=== PATIENT | male | born 1995 | race Caucasian/White ===

== ENCOUNTER 2018-10-08 16:03 | Inpatient (IN) | payer OTHER ==
[2018-10-08 17:38] LABS: ABS Eosinophils 0.4 10^3/ul (0-0.6); ABS Lymphocytes 1.1 10^3/ul (1.0-4.8); ABS Monocytes 0.6 10^3/ul (0-0.8); ABS Neutrophils 5.5 10^3/ul (1.5-7.7); Hematocrit 46 % (42-52); Hemoglobin 15.7 g/dL (14.0-18.0); Lymphocyte % 14.3 %; Mean Corpuscular HGB Conc 34 g/dL (31-36); Mean Corpuscular Hemoglobin 30 pg (27-31); Mean Corpuscular Volume 89 fL (80-94); Mean Platelet Volume 8.7 fL (7.4-10.4); Nucleated Red Blood Cells % 0.1; Platelet Count 178 10^3/uL (150-450); Red Blood Count 5.17 10^6 /uL (4.18-5.48); Red Cell Distribution Width 13 % (10.5-15); White Blood Count 7.6 10^3/uL (3.5-10.8)
[2018-10-08 17:50] LABS: ALT 492 U/L (7-52); Albumin 4.5 g/dL (3.2-5.2); Albumin/Globulin Ratio 1.8 (1-3); Alkaline Phosphatase 93 U/L (34-104); BUN/Creatinine Ratio 11.8 (8-20); Blood Urea Nitrogen 10 mg/dL (6-24); CO2 Carbon Dioxide 37 mmol/L (22-32); Calcium 9.7 mg/dL (8.6-10.3); Chloride 103 mmol/L (101-111); EGFR African American 135.2 (>60); EGFR Non-African American 111.7 (>60); Globulin 2.5 g/dL (2-4); Glucose 65 mg/dL (70-100); Potassium 4.3 mmol/L (3.5-5.0); Sodium 139 mmol/L (135-145)
[2018-10-08] MEDS ORDERED: NS 0.9% 1000 ML** 1,000 ML IV ONE ×3 (18:14→21:42)
[2018-10-08 18:16] LABS: AST 1899 U/L (13-39)
--- NOTE | 2018-10-08 18:42 | ED ---
Upper Extremity Pain - HPI Summary HPI Summary: 23 yo male presents with [facility] [place] ED with muscle aches. He tells me that he works out often and is a runner. He worked out especially hard 4 days ago on 10/04. Since that time he has been having continued muscle aches and fatigue, which is unusual for him. He went to [facility] and they checked a urine sample which apparently was dark in color and contained protein and blood. He was advised to come to the ED for further eval over concern for rhabdomyolysis. Currently pt states he feels well except for some diffuse muscle aches and slight weakness. He is urinating without issue. Denies dizziness, SOB, chest pain, abdominal pain, n/v, back pain, or recent illness. - History of Current Complaint Chief Complaint: EDGeneral Stated Complaint: MUSCLE PAIN/BLOOD IN URINE PER PT Time Seen by Provider: 10/08/18 18:14 Hx Obtained From: Patient Onset/Duration: Started Days Ago Timing: Constant Severity Initially: Mild Severity Currently: Mild - Allergies/Home Medications Allergies/Adverse Reactions: Allergies Allergy/AdvReac Type Severity Reaction Status Date / Time No Known Allergies Allergy Verified 10/08/18 16:11 Home Medications: Home Medications NK [No Home Medications Reported] 10/08/18 [History Confirmed 10/08/18] PMH/Surg Hx/FS Hx/Imm Hx Previously Healthy: Yes Endocrine/Hematology History: Denies: Hx Blood Disorders, Hx Diabetes, Hx Anemia Cardiovascular History: Denies: Hx Atrial Fibrillation, Hx Hypotension, Hx Hypertension, Hx Myocardial Infarction, Hx Syncope Respiratory History: Denies: Hx Asthma GI History: Denies: Hx Gall Bladder Disease, Hx Jaundice History: Denies: Hx Acute Renal Failure, Hx Kidney Infection, Hx Kidney Stones Psychiatric History: Denies: Hx Anxiety - Immunization History Immunizations Up to Date: Yes Infectious Disease History: No Infectious Disease History: Denies: Traveled Outside the [place] in Last 30 Days - Family History Known Family History: Positive: None - Social History Lives: With Family Alcohol Use: Rare Substance Use Type: Reports: None Smoking Status (MU): Never Smoked Tobacco Review of Systems Constitutional: Negative Eyes: Negative Cardiovascular: Negative Respiratory: Negative Gastrointestinal: Negative Genitourinary: Negative Positive: Myalgia Skin: Negative Neurological: Negative Psychological: Normal All Other Systems Reviewed And Are Negative: Yes Physical Exam - Summary Physical Exam Summary: GENERAL: NAD. WDWN. No pain distress. SKIN: No rashes, sores, ulcers, masses, lesions. No ecchymosis HEENT: Head: AT/NC. Eyes: PERRLA. EOM intact. Ears: Hearing grossly normal. TMs intact, no bulging, erythema, or edema. No hemotympanum Nose: Nasal mucosa pink and moist. Throat: Posterior oropharynx without exudates, erythema, or tonsillar enlargement. Uvula midline. NECK: Supple. Nontender. FROM CHEST: CTAB. No r/r/w. No accessory muscle use. Breathing comfortably and in no distress. CV: RRR. Without m/r/g. Pulses intact. Brisk cap refill. ABDOMEN: Soft. NTTP. Bowel sounds present MSK: FROM in B/L UEs and LEs with symmetric strength. NEURO: A&Ox3. PSYCH: Age appropriate behavior. Triage Information Reviewed: Yes Vital Signs On Initial Exam: Initial Vitals Temp Pulse Resp BP Pulse Ox 98.7 F 74 16 123/84 99 10/08/18 16:07 10/08/18 16:07 10/08/18 16:07 10/08/18 16:07 10/08/18 16:07 Vital Signs Reviewed: Yes Diagnostics - Vital Signs Vital Signs Temp Pulse Resp BP Pulse Ox 10/08/18 16:07 98.7 F 74 16 123/84 99 - Laboratory Lab Results: Lab Results 10/08/18 10/08/18 Range/Units 17:23 17:23 WBC 7.6 (3.5-10.8) 10^3/uL RBC 5.17 (4.18-5.48) 10^6 /uL Hgb 15.7 (14.0-18.0) g/dL Hct 46 (42-52) % MCV 89 (80-94) fL MCH 30 (27-31) pg MCHC 34 (31-36) g/dL RDW 13 (10.5-15) % Plt Count 178 (150-450) 10^3/uL MPV 8.7 (7.4-10.4) fL Neut % (Auto) 72.3 % Lymph % (Auto) 14.3 % [place] % (Auto) 8.1 % Eos % (Auto) 5.0 % Baso % (Auto) 0.3 % Absolute Neuts (auto) 5.5 (1.5-7.7) 10^3/ul Absolute Lymphs (auto) 1.1 (1.0-4.8) 10^3/ul Absolute Monos (auto) 0.6 (0-0.8) 10^3/ul Absolute Eos (auto) 0.4 (0-0.6) 10^3/ul Absolute Basos (auto) 0.0 (0-0.2) 10^3/ul Absolute Nucleated RBC 0.0 10^3/ul Nucleated RBC % 0.1 Sodium 139 (135-145) mmol/L Potassium 4.3 (3.5-5.0) mmol/L Chloride 103 (101-111) mmol/L Carbon Dioxide 37 H (22-32) mmol/L BUN 10 (6-24) mg/dL Creatinine 0.85 (0.67-1.17) mg/dL Est GFR ( Amer) 135.2 (>60) Est GFR (Non-Af Amer) 111.7 (>60) BUN/Creatinine Ratio 11.8 (8-20) Glucose 65 L (70-100) mg/dL Calcium 9.7 (8.6-10.3) mg/dL Total Bilirubin 0.40 (0.2-1.0) mg/dL AST 1899 H (13-39) U/L ALT 492 H (7-52) U/L Alkaline Phosphatase 93 (34-104) U/L Total Creatine Kinase Pending Total Protein 7.0 (6.4-8.9) g/dL Albumin 4.5 (3.2-5.2) g/dL Globulin 2.5 (2-4) g/dL Albumin/Globulin Ratio 1.8 (1-3) Result Diagrams: 10/08/18 17:23 10/08/18 17:23 Lab Statement: Any lab studies that have been ordered have been reviewed, and results considered in the medical decision making process. Re-Evaluation - Re-Evaluation First Eval Re-Evaluation Time: 20:05 Change: Unchanged Comment: Pt still feeling well. Discussed possible admission with pt and he is agreeable with this. Hospitalist to eval Course/Dx - Course [place] [address]. Myoglobin 3691. UA with 3+ blood, 1+ protein, and trace leuks. Pt with rhabdomyolysis. In the ED pt was initially given 2L/hr bolus followed by 1L/hr NS x3. He has elevated liver enzymes which is not unexpected given his rhabdo. His renal function was WNL and he has no sign of end organ damage. Given his need for continued fluids and recheck labwork, I have consulted the hospitalist team for admission. Dr. Nelson agrees to admit the patient. - Diagnoses Provider Diagnoses: Rhabdomyolysis - Physician Notifications Discussed Care of Patient With: Alyson Nelson Instructed by Provider To: Admit As Inpatient - Critical Care Time Critical Care Time: 30-74 min Discharge - Sign-Out/Discharge Documenting (check all that apply): Patient Departure Patient Received Moderate/Deep Sedation with Procedure: No - Discharge Plan Condition: Stable Disposition: ADMITTED TO [facility] - Billing Disposition and Condition Condition: STABLE Disposition: Admitted to [facility]
[2018-10-08 19:04] LABS: Urine Appearance Turbid; Urine Bacteria Absent (Absent); Urine Bilirubin Negative (Negative); Urine Blood 3+ (Negative); Urine Color Yellow; Urine Glucose Negative (Negative); Urine Ketones Negative (Negative); Urine Nitrite Negative (Negative); Urine Protein 1+(30 mg/dL) (Negative); Urine Red Blood Cell Trace(0-2/hpf) (Absent); Urine Specific Gravity 1.015 (1.010-1.030); Urine Urobilinogen Negative (Negative); Urine White Blood Cell Trace(0-5/hpf) (Absent)
[2018-10-08] MEDS ORDERED: NS 0.9% 1000 ML** 2,000 ML IV ONE (19:10)
[2018-10-08 19:35] LABS: Myoglobin 3691.9 ng/mL (17.4-105.7)
[2018-10-08] MEDS ORDERED: Acetaminophen TAB* 325 MG PO PRN (22:45)
--- NOTE | 2018-10-09 00:25 | HP ---
Amended report to enter cosigning physician. CC: [facility]; Dr. Alyson Nelson* HISTORY AND PHYSICAL: DATE OF ADMISSION: 10/08/18. ATTENDING PHYSICIAN: Dr. Alyson Nelson* (dictated by Dagmar Agrawal NP PRIMARY CARE PROVIDER: [facility]. HISTORY OF PRESENT ILLNESS: Mr. Naqvi is a 23-year-old male with no significant past medical history who presented to the emergency room complaining of muscle soreness and dark urine x4 days. The patient reports that on Thursday he did an extreme [employer] workout called the [place] challenge, which consisted of a mile run, 100 pull-ups, 200 push-ups, 300 squats and then a mile run again. Patient reports that he completed the whole challenge. He reported that he had muscle aches, suspected this was related to the workout as it was more extreme than his normal physical workout he does 3 to 4 times a week. The patient reports that he started noticing dark urine. He reported that his muscle soreness was not improving and he was concerned about the dark urine, so he presented to the emergency room for further evaluation. While in the emergency room, the patient had routine lab work drawn. He was found to have a CK of 16,000 and an elevated myoglobin of 3691. He was also found to have blood in his urine. Due to these findings, we were asked to see and evaluate him for admission. PAST MEDICAL HISTORY: None. PAST SURGICAL HISTORY: [place] teeth removed. HOME MEDICATIONS: None. ALLERGIES: No known drug allergies. FAMILY HISTORY: No reported history of coronary artery disease or diabetes. Maternal grandfather with skin cancer. Maternal grandmother with colon cancer. SOCIAL HISTORY: The patient denies any tobacco. Does report occasional alcohol use. No illicit drug use. He is a student at [employer]. He is single. Surrogate decision maker in the event he is unable to make his own decisions is his mother, Elizabeth, her phone number is [phone]. REVIEW OF SYSTEMS: Patient denies any fever, chills, unintended weight loss. Denies any chest pain or edema. Denies any cough, hemoptysis, or shortness of breath. No nausea, vomiting, diarrhea, or abdominal pain. Denies any gross hematuria or dysuria. He does report dark urine, but no pain with urination. Denies any focal weakness or sensory loss. Denies any dysphagia. He does report muscle aches. Denies any rashes, lesions, open sores, psychosis or anxiety. PHYSICAL EXAMINATION GENERAL: At this time, is alert and oriented, resting on the stretcher in the emergency room. He is in no acute distress. VITAL SIGNS: Blood pressure 137/85, temperature was 98.9, heart rate 85, respirations 20, O2 saturation was 97%, room air. HEENT: Head is atraumatic, normocephalic. Eyes: EOMs are intact. Sclerae anicteric. Not pale. Oral mucosa appeared to be moist. NECK: Supple. LUNGS: Clear to auscultation bilaterally. No wheezes, rales, or rhonchi. CARDIAC: S1, S2. Regular rate and rhythm. No murmurs, rubs, or gallops. ABDOMEN: Soft, nontender. Bowel sounds are present x4. EXTREMITIES: He is able to move all 4 extremities with 5/5 strength. Pedal pulses are +2 bilaterally. Radial pulses are +2 bilaterally. There is no clubbing or cyanosis. Right forearm and upper arm with mild swelling, muscle is soft to palpation. NEUROLOGIC: He is awake, alert, oriented x3. Speech is clear. Thought process intact. There are no gross focal deficits. SKIN: Intact. LABORATORY DATA/DIAGNOSTIC STUDIES: WBCs are 7.6, RBCs 5.17, hemoglobin 15.7, hematocrit of 46, platelet count of 178,000. Sodium 139, potassium 4.3, chloride 103, carbon dioxide was 37, BUN was 10, creatinine 0.85, glucose was 65 , calcium 9.7. ASTs were 1899, ALTs were 492, alkaline phosphatase was 93, total CK was 16,539, myoglobin was 3691. Urine was within normal limits with the exception of urine protein was +1, urine blood was 3+, urine leukocyte esterase was trace and yeast was present. ASSESSMENT AND PLAN: 1. Mr. Naqvi is a 23-year-old male with no significant past medical history who completed an extreme [employer] workout on Thursday and developed muscle soreness and dark colored urine and presented for further evaluation, found to have rhabdomyolysis. He will be admitted inpatient for rhabdomyolysis. The patient did receive 5 L of normal saline in the emergency room. I will start him on Lactated Ringer's at 200 cc per hour, repeat a BMP and liver functions in the a.m. with a repeat CK. Patient will need to continue on IV fluids until his CK is below 5000. 2. Elevated liver functions. I expect his elevation in liver function is related to his rhabdomyolysis. We will continue to monitor his liver functions. If they remain elevated, would consider ultrasound of the liver. 3. FEN. He will have regular diet. 4. Code status is full code. 5. DVT prophylaxis. I will place him on heparin subcu q.12 hours. 6. Disposition. Patient will be placed inpatient on the medical floor. TIME SPENT: Time spent on this admission was approximately 50 minutes, greater than half that time was spent at the bedside, reviewing events leading thus far to his hospitalization, performing physical exam and reviewing my plan of care. I have discussed this with my attending, Dr. Alyson Nelson, she is in agreement with my plan. DAGMAR AGRAWAL, BRUCE [id number]/CPS #: [id number] FIDENCIO
[2018-10-09] MEDS: Lactated Ringers 1000 ML Bag* 1,000 ML IV SCH ×3 (00:36→10:39)
[2018-10-09] MEDS: Heparin VIAL(*) 5000 UNITS/ML VIAL (FIVE THOUSAND) SUBCUT SCH ×3 (01:01→21:16)
[2018-10-09 06:53] LABS: Albumin 3.9 g/dL (3.2-5.2); Albumin/Globulin Ratio 1.9 (1-3); BUN/Creatinine Ratio 13.2 (8-20); Calcium 9.1 mg/dL (8.6-10.3); EGFR African American 153.8 (>60); EGFR Non-African American 127.1 (>60); Globulin 2.1 g/dL (2-4); Indirect Bilirubin 0.3 mg/dL (0.3-1.0); Potassium 4.2 mmol/L (3.5-5.0); Total Bilirubin 0.4 mg/dL (0.2-1.0)
[2018-10-09 06:54] LABS: CKMB ng/mL 12.2 ng/mL (0.6-6.3)
[2018-10-09] MEDS ORDERED: NS 0.9% 1000 ML** 1,000 ML IV ONE ×2 (15:37→15:38)
[2018-10-09] MEDS: NS 0.9% 1000 ML** 1,000 ML IV SCH ×2 (17:22→21:24)
--- NOTE | 2018-10-09 18:11 | PN ---
Subjective Date of Service: 10/09/18 Interval History: Patient seen and examined. States he has no more muscle pain and urine is clearing. Denies chest pain, no SOB, no n/v or weakness. No further complaints. Objective Active Medications: Acetaminophen (Tylenol Tab*) 650 mg PO Q4H PRN PRN Reason: FEVER/PAIN Heparin Sodium (Porcine) (Heparin Vial(*)) 5,000 units SUBCUT Q12HR [facility] Last Admin: 10/09/18 08:13 Dose: Not Given Lactated Ringer's (Lactated Ringers 1000 Ml Bag*) 1,000 mls @ 200 mls/hr IV PER RATE [facility] Last Admin: 10/09/18 10:39 Dose: 200 mls/hr Sodium Chloride (Ns 0.9% 1000 Ml) 1,000 mls @ 250 mls/hr IV PER RATE [facility] Last Admin: 10/09/18 17:22 Dose: 250 mls/hr Vital Signs - 8 hr 10/09/18 10/09/18 11:04 15:36 Temperature 98.4 F 98.1 F Pulse Rate 57 72 Respiratory 16 12 Rate Blood Pressure 137/69 150/72 (mmHg) O2 Sat by Pulse 100 100 Oximetry Oxygen Devices in Use Now: None Appearance: alert, NAD Eyes: No Scleral Icterus, PERRLA Ears/Nose/Mouth/Throat: NL Teeth, Lips, Gums, Mucous Membranes Moist Neck: NL Appearance and Movements; NL JVP, Trachea Midline Respiratory: Symmetrical Chest Expansion and Respiratory Effort, Clear to Auscultation Cardiovascular: NL Sounds; No Murmurs; No JVD, RRR, No Edema Abdominal: NL Sounds; No Tenderness; No Distention Extremities: No Edema, No Clubbing, Cyanosis Skin: No Rash or Ulcers Neurological: Alert and Oriented x 3, NL Sensation, NL Gait, NL Muscle Strength and Tone Nutrition: Taking PO's Result Diagrams: 10/08/18 17:23 10/09/18 06:05 Additional Lab and Data: Lab Results 10/08/18 10/08/18 Range/Units 17:23 17:23 WBC 7.6 (3.5-10.8) 10^3/uL RBC 5.17 (4.18-5.48) 10^6 /uL Hgb 15.7 (14.0-18.0) g/dL Hct 46 (42-52) % MCV 89 (80-94) fL MCH 30 (27-31) pg MCHC 34 (31-36) g/dL RDW 13 (10.5-15) % Plt Count 178 (150-450) 10^3/uL MPV 8.7 (7.4-10.4) fL Neut % (Auto) 72.3 % Lymph % (Auto) 14.3 % [place] % (Auto) 8.1 % Eos % (Auto) 5.0 % Baso % (Auto) 0.3 % Absolute Neuts (auto) 5.5 (1.5-7.7) 10^3/ul Absolute Lymphs (auto) 1.1 (1.0-4.8) 10^3/ul Absolute Monos (auto) 0.6 (0-0.8) 10^3/ul Absolute Eos (auto) 0.4 (0-0.6) 10^3/ul Absolute Basos (auto) 0.0 (0-0.2) 10^3/ul Absolute Nucleated RBC 0.0 10^3/ul Nucleated RBC % 0.1 Sodium 139 (135-145) mmol/L Potassium 4.3 (3.5-5.0) mmol/L Chloride 103 (101-111) mmol/L Carbon Dioxide 37 H (22-32) mmol/L BUN 10 (6-24) mg/dL Creatinine 0.85 (0.67-1.17) mg/dL Est GFR ( Amer) 135.2 (>60) Est GFR (Non-Af Amer) 111.7 (>60) BUN/Creatinine Ratio 11.8 (8-20) Glucose 65 L (70-100) mg/dL Calcium 9.7 (8.6-10.3) mg/dL Total Bilirubin 0.40 (0.2-1.0) mg/dL AST 1899 H (13-39) U/L ALT 492 H (7-52) U/L Alkaline Phosphatase 93 (34-104) U/L Total Creatine Kinase Pending Total Protein 7.0 (6.4-8.9) g/dL Albumin 4.5 (3.2-5.2) g/dL Globulin 2.5 (2-4) g/dL Albumin/Globulin Ratio 1.8 (1-3) Microbiology and Other Data: Microbiology 10/08/18 18:35 Urine Culture - Final Urine No Growth (<1,000 CFU/mL) Assess/Plan/Problems-Billing Assessment: This is a 23 year old male with no previous medical history that presented to the ER muscle pain and dark urine after engaging in strenuous crossfit challenge , found to have high CPK and hematuria. - Patient Problems (1) Rhabdomyolysis Code(s): M62.82 - RHABDOMYOLYSIS SNOMED Code(s): 039611790 Comment: - Severe, 2/2 extreme exercise activity - [place] [address] and increased to 867081 after 5 liters of IVNS - AST trending down from 1899 to 1370 - Will give additional 2L NS now and change to NS at 250ml/hr after, repeat CK and CMP - Risk for delayed renal dysfunction given extremely elevated CK - continue to monitor closely (2) Full code status Code(s): Z78.9 - OTHER SPECIFIED HEALTH STATUS SNOMED Code(s): 759308832 Status and Disposition: Inpatient
[2018-10-10] MEDS: NS 0.9% 1000 ML** 1,000 ML IV SCH ×2 (05:53→09:49)
[2018-10-10 06:40] LABS: ABS Eosinophils 0.5 10^3/ul (0-0.6); ABS Lymphocytes 1.4 10^3/ul (1.0-4.8); ABS Monocytes 0.4 10^3/ul (0-0.8); ABS Neutrophils 3.3 10^3/ul (1.5-7.7); Eosinophil % 8.7 %; Hematocrit 41 % (42-52); Hemoglobin 14.1 g/dL (14.0-18.0); Lymphocyte % 24.9 %; Mean Corpuscular HGB Conc 34 g/dL (31-36); Mean Corpuscular Hemoglobin 31 pg (27-31); Mean Corpuscular Volume 90 fL (80-94); Platelet Count 150 10^3/uL (150-450); Red Blood Count 4.59 10^6 /uL (4.18-5.48); Red Cell Distribution Width 13 % (10.5-15); White Blood Count 5.7 10^3/uL (3.5-10.8)
[2018-10-10 06:57] LABS: Albumin 3.8 g/dL (3.2-5.2); Albumin/Globulin Ratio 1.7 (1-3); BUN/Creatinine Ratio 11.5 (8-20); Calcium 9.1 mg/dL (8.6-10.3); EGFR African American 149.3 (>60); EGFR Non-African American 123.3 (>60); Globulin 2.2 g/dL (2-4); Potassium 4.2 mmol/L (3.5-5.0); Total Bilirubin 0.4 mg/dL (0.2-1.0)
[2018-10-10] MEDS: Heparin VIAL(*) 5000 UNITS/ML VIAL (FIVE THOUSAND) SUBCUT SCH (08:29)
[2018-10-10 11:12] VITALS: BP 139/60
--- NOTE | 2018-10-10 21:11 | DS ---
DISCHARGE SUMMARY: DATE OF ADMISSION: 10/08/18 DATE OF DISCHARGE: 10/10/18 PRIMARY CARE PROVIDER: [facility]. MY ATTENDING FOR TODAY: Dr. Gandhi.* (DICTATED BY SESAR BENTON NP) HOSPITAL COURSE: Please refer to admitting H and P dated 10/08/18, but in short , Mr. Naqvi is a 23-year-old male patient with no reported medical history, who came to the emergency department with a report of hematuria and dark urine. The patient did report that prior to coming to the emergency department 2 days before, he did an extreme [employer] workout called the [place] challenge, which consisted of a 1 mile run, 100 pull-ups, 200 push-ups, 300 squats and then another 1 mile run. He completed this challenge and then subsequently had muscle aches and cramps, then started to notice dark urine and hematuria and came to the emergency department for evaluation. Labs did reveal an elevated liver function. His AST was 1899, total creatine kinase was 16,539 , and myoglobin of 3691. Renal function was still within normal limits. He did not have an elevated white count. Vital signs were essentially stable. His blood sugar was somewhat low. The patient was initially admitted to observation for rhabdomyolysis. He received 5 L of fluid within the first 24 hours of admission. Repeat labs, however, revealed that his creatine kinase was on the rise. His maximum CK on 10/09/18 was 114,892. His AST did start to trend down to 1370. However, with the creatine kinase still on the rise, the patient received 2 more liters of normal saline bolus and was switched off of lactated Ringer's and back on to normal saline at 250 mL per hour for another 24 hours. Laboratories on 10/10/18 showed his creatine kinase reduced by about 50% at 54,586 and AST down to 1000, ALT down to 391. The patient was reporting that his urine is now clear. No further hematuria or myoglobinuria per his report and also per nursing report who evaluated his urine prior to discharge. REVIEW OF SYSTEMS: The patient also states on his review of systems today that he has no further muscle cramps. Clear urine. No focal weakness. No headaches. No further dysuria. No abdominal pain, no nausea, no vomiting, and no further constitutional complaints. PHYSICAL EXAMINATION: Today reveals a very well-appearing young man, in no acute distress. His vital signs are blood pressure 139/60, heart rate 61, respiratory rate 18, O2 saturation 98% on room air with a temperature of 98.4. HEENT: The patient is atraumatic, normocephalic. PERRLA. Nonicteric sclerae. Oral mucosa moist. Tongue is midline. Neck is supple, nontender. No thyromegaly noted. Cardiovascular: S1, S2 present. No murmurs, gallops, or rubs noted. Rate and rhythm are regular. Lungs are clear bilaterally to auscultation with no adventitious breath sounds. Abdomen is soft, nontender, nondistended. Positive bowel sounds in all 4 quadrants. : Deferred. Musculoskeletal: No clubbing, no cyanosis, no edema. He has brisk cap refill, +2 distal pulses palpable, full range of motion, steady gait. Gross motor and sensation are intact. Neurologic: Grossly intact with no focal deficits. Psychiatric: He is cooperative and appropriate. LABORATORY DATA: On the day of discharge: WBCs 5.7, RBCs 4.59, hemoglobin 14.1 , hematocrit 41. Sodium 138, potassium 4.2, chloride 106, CO2 of 27, BUN 9, creatinine 0.78, GFR 123.3, glucose 99, calcium 9.1. Bilirubin 0.40. AST 1000 , ALT 391, alk phos 80. Creatine kinase 54,586. Total protein 6.0, albumin 3.8 , globulin 2.2, albumin/globulin ratio 1.7. DISCHARGE DIAGNOSES: 1. Rhabdomyolysis, secondary to extreme exercise. 2. Transaminitis, improving. 3. Hematuria, resolved. MEDICATIONS FOR DISCHARGE: None. DIET: Regular diet as tolerated. The patient should increase fluid intake 3 L over the next 24 hours and then increase p.o. water intake for the next 72 hours. FOLLOWUPS: The patient was instructed to follow up with [facility]. He does need to have laboratories drawn on 10/12/18. The patient should have a CMP drawn and a creatine kinase repeated on Thursday to ensure that his numbers are continuing to trend in the right direction. The patient was also instructed to call [facility] or return to the emergency department if his urine does become dark, if he gets muscle cramping again or has any additional muscle cramping or any other symptoms related to his current diagnosis of rhabdomyolysis. The patient stated his understanding of his discharge instructions and followups. DISPOSITION: The patient was discharged to home in stable condition. TIME SPENT: Approximately 40 minutes on discharge planning and counseling. SESAR BENTON, BRUCE [id number]/CPS #: [id number] FIDENCIO
[2018-10-12 10:25] LABS: Creatine Kinase 165390 U/L (10-223)
== END 2018-10-10 14:10 | disposition home or self-care (01) | DRG 558 ==
LOC: ED 16:03 → MED 22:45
PROVIDERS: ADMIT Nurse Practitioner; ATTEND Internal Medicine
DX: M62.82 Rhabdomyolysis (principal); R74.0 Nonspecific elevation of levels of transaminase and lactic acid dehydrogenase [LDH]; R31.9 Hematuria, unspecified; R94.5 Abnormal results of liver function studies; Z80.0 Family history of malignant neoplasm of digestive organs; Z80.8 Family history of malignant neoplasm of other organs or systems
CPT/HCPCS: 36415; 80048; 80053; 80076; 81003; 81015; 82550; 82553; 83874; 85025; 87086; 99283